=== PATIENT | male | born 1970 | race Caucasian/White ===

== ENCOUNTER 2024-03-01 06:20 | Day surgery (SDC) | payer BC, SELFPAY | END 2024-03-01 10:15 | disposition home or self-care (01) | LOC: GI 06:20 | PROVIDERS: ATTENDING PHYSICIAN Internal Medicine Gastroenterology | DX: Z12.11 Encounter for screening for malignant neoplasm of colon (principal); D12.4 Benign neoplasm of descending colon; K63.3 Ulcer of intestine; K63.0 Abscess of intestine; K57.30 Diverticulosis of large intestine without perforation or abscess without bleeding; K64.8 Other hemorrhoids; Z86.0100 Personal history of colon polyps, unspecified | CPT/HCPCS: 45380; 88305; 88342 ==

== ENCOUNTER → 2024-03-28 08:16 | Outpatient (REF) | payer BC, SELFPAY | LOC: RAD 08:16 | PROVIDERS: ATTENDING PHYSICIAN Internal Medicine Gastroenterology; FAMILY PHYSICIAN Internal Medicine | DX: K57.92 Diverticulitis of intestine, part unspecified, without perforation or abscess without bleeding (principal) | CPT/HCPCS: 74177; Q9967 ==

== ENCOUNTER 2024-06-21 01:10 | Emergency (ER) | payer BC, SELFPAY ==
[2024-06-21 01:17] VITALS: BP 165/95
--- NOTE | 2024-06-21 05:34 | ED.GENMED ---
History of Present Illness
General
Chief Complaint: Musculo-Skeletal Complaint
Source: patient
Exam Limitations: none
Time Seen by Provider: 06/21/24 05:00
Nursing documentation reviewed up to this point in time: agreed with
History of Present Illness
History of Present Illness:
54-year-old male presents emergency department complaining of right leg pain. 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 He was withholding NSAIDs due to this injection. He did take the meloxicam in the ED. It
helped a little bit.
Past History
Past History
ED Past Medical History: Psychiatric (ADHD)
ED Past Surgical History: Orthopedic (Right patellar, Achilles tendon) and Other (Laser eye surgery, basal cell carcinoma)
Social History
Tobacco: Non-smoker
Alcohol: None
Drug: None
Review of Systems
Review of Systems
Allergies reviewed?: Yes
All Other Systems: Not applicable
Constitutional: Reports no symptoms
EENT: Reports no symptoms
Respiratory: Reports no symptoms
Cardiac: Reports no symptoms
ABD/GI: Reports no symptoms
: Reports no symptoms
Musculoskeletal: Reports joint pain and muscle pain
Skin: Reports no symptoms
Neurological: Reports no symptoms
Endocrine: Reports no symptoms
Hematologic/Lymphatic: Reports no symptoms
Psychiatric: Reports no symptoms
Phy Exam
Physical Exam
Physical Exam:
Physical Exam
General: no apparent distress, not acutely ill
Neck: supple. no meningeal signs. normal posterior pharynx
HEENT: Pupils equal round reactive to light, EOMI
Lungs: no acute respiratory distress.
Abdomen: Nondistended
Neuro: alert and oriented. no focal neurological deficits
Skin: no rash
Psychiatric: well kept. interactive and cooperative
Extremities: no edema. no calf tenderness. negative homans. good distal pulses, antalgic gait
Course
Vital Signs
Initial and Last Documented VS:
Initial Vital Signs
Temp Pulse Resp BP Pulse Ox
98 F 84 26 165/95 97
06/21/24 01:17 06/21/24 01:17 06/21/24 01:17 06/21/24 01:17 06/21/24 01:17
Last Documented Vital Signs
Temp Pulse Resp BP Pulse Ox
98 F 84 26 165/95 97
06/21/24 01:17 06/21/24 01:17 06/21/24 01:17 06/21/24 01:17 06/21/24 01:17
MDM/Problems Addressed
Differential Diagnosis Includes:
DVT, groin strain
MDM/Problems Addressed:
54-year-old male with right leg pain, likely due to right hip arthritis. Stable for discharge. Will treat with gabapentin. Follow-up with orthopedics.
*Pulse Oximetry
Patient hypoxic: no
*Critical Care Note
Total Time (30-74mins, 75-104mins- exclusive of procedures): Not Applicable
Patient Management
Social determinants of health affecting care: Living situation and Strong social support
Escalation/DeEscalation of care consider admission/obs:
Admit not indicated
ED Attending Note
-
Portions of this chart may have been created with voice recognition software.� Occasional wrong word or��sound alike� substitutions may have occurred due to the inherent limitations of voice recognition software.
Discharge Plan
Departure
Patient Disposition: Home (Routine Discharge)
Date of Disposition: 06/21/24
Time of Disposition: 05:39
Patient with high blood pressure during this ER visit?: Yes
Condition: Good
Discharge Problem:
Acute pain of right hip
Instructions: Muscle and Bone Pain (DC), BLOOD PRESSURE
Prescriptions:
New
gabapentin 300 mg capsule
300 mg PO TID PRN (Reason: pain) Qty: 30 0RF
Referrals:
Otranto,Jalil B., MD [Active] - Call in 1-3 days for appt
Abdoul Maldonado MD [Family Provider] -
Interventions
Interventions:
*Risk Screen - Suicide Last Done: 06/21/24 01:17
*General Assessment Last Done: 06/21/24 01:34
*Neglect/Abuse Screening Last Done: 06/21/24 01:17
*ED- Fall Risk Assessment Last Done: 06/21/24 01:34
*ED COVID-19 Vaccine History Last Done: 06/21/24 01:34
ED-Musculoskeletal Assessment Last Done: 06/21/24 01:34
ED- Neurological Assessment Last Done: 06/21/24 01:34
Discharge Date and Time
Print Language: URDU
[2024-06-21] MEDS: TYLENOL 1000 MG PO (05:51)
[2024-06-21] MEDS: NEURONTIN 300 MG PO (05:51)
[2024-06-21] MEDS: TORADOL 15 MG IM (05:52)
[2024-06-21 06:00] VITALS: BP 132/91
== END 2024-06-21 06:00 | disposition home or self-care (01) ==
LOC: EMR 01:10
PROVIDERS: EMERGENCY PHYSICIAN Emergency Medicine; FAMILY PHYSICIAN Internal Medicine
DX: M25.551 Pain in right hip (principal); M16.11 Unilateral primary osteoarthritis, right hip; Z85.828 Personal history of other malignant neoplasm of skin
CPT/HCPCS: 96372; 99284

== ENCOUNTER → 2025-03-01 07:33 | Outpatient (REF) | payer BC, SELFPAY | LOC: PAVMRI 07:33 | PROVIDERS: ATTENDING PHYSICIAN Specialist; FAMILY PHYSICIAN Internal Medicine | DX: R97.20 Elevated prostate specific antigen [PSA] (principal) | CPT/HCPCS: 72197; A9575 ==